=== PATIENT | female | born 1990 | race Two or more races ===

== ENCOUNTER 2022-12-05 09:45 | Observation (INO) | payer MEDICAID ==
[2022-12-05 10:24] LABS: Basophils # (auto) 0 10 ^3/uL (0-0.2); Basophils % (auto) 0.4 % (0.0-2.0); Eosinophils # (auto) 0.1 10 ^3/uL (0-0.8); Eosinophils % (auto) 1.4 % (0.0-7.0); Hematocrit 37.2 % (36.0-46.0); Hemoglobin 12.1 g/dL (12.2-16.2); Lymphocytes # (auto) 1.5 10 ^3/uL (0.4-5.4); Lymphocytes % (auto) 24.8 % (10.0-50.0); Mean Corpuscular Hemoglobin 26.8 pg (28.0-32.0); Mean Corpuscular Hgb Conc. 32.6 g/dL (32.0-36.0); Mean Corpuscular Volume 82.1 fL (80.0-100.0); Monocytes # (auto) 0.4 10 ^3/uL (0-1.3); Monocytes % (auto) 6.9 % (0.0-12.0); Neutrophils % (auto) 66.5 % (37.0-80.0); Nucleated Red Blood Cells % 0.2 %; Red Blood Cells 4.53 10^6/uL (4.0-5.20); Red Cell Distribution Width 16.1 % (11.8-14.3); White Blood Cell 5.9 10^3/uL (4.4-10.8)
[2022-12-05 11:00] LABS: Urine Bacteria FEW /hpf (None Seen); Urine Blood Negative /uL (Negative); Urine Hyaline Cast FEW /lpf (0 - 2); Urine Specific Gravity 1.007 (1.001-1.035); Urine WBC 5 /hpf (0 - 5)
[2022-12-05 11:05] LABS: Albumin 2.8 g/dL (3.4-5.0); Calcium 8.7 mg/dL (8.5-10.1); Potassium 4.1 mmol/L (3.5-5.1)
[2022-12-05 11:10] LABS: BUN/Creatinine Ratio 10.7 (10.0-20.0); Bilirubin, Total 0.7 mg/dL (0.2-1.0); Uric Acid 3.6 mg/dL (2.6-6.0)
[2022-12-05 12:02] LABS: INR 0.89 (0.9-1.15); Partial Thromboplastin Time 25.4 sec (24.6-33.4)
[2022-12-05 12:02] LABS: Protein, Urine 17.9 mg/dL (0.0-11.9)
[2022-12-05] MEDS ORDERED: PREN-96 PO (12:28)
[2022-12-05] MEDS ORDERED: NITR-87 PO (12:28)
== END 2022-12-05 12:42 | disposition home or self-care (01) ==
LOC: LDRP 09:45
PROVIDERS: ADMIT Obstetrics & Gynecology; ATTEND Obstetrics & Gynecology
DX: O14.93 Unspecified pre-eclampsia, third trimester (principal); O26.893 Other specified pregnancy related conditions, third trimester; R42 Dizziness and giddiness; Z3A.38 38 weeks gestation of pregnancy
CPT/HCPCS: 36415; 59025; 76818; 80053; 81001; 81002; 82570; 84156; 84550; 85025; 85379; 85610; 85730; 94760; G0378

== ENCOUNTER 2022-12-08 08:45 | Observation (INO) | payer MEDICAID ==
[~2022-12-08 08:45] MED LIST: NITR-87 PO; PREN-96 PO
[2022-12-16] MEDS ORDERED: IBUP800T27 PO (07:19)
== END 2022-12-08 11:14 | disposition home or self-care (01) ==
LOC: LDRP 08:45 → UNDOADMOB 08:45 → LDRP 08:52 → UNDODISOB 11:14
PROVIDERS: ADMIT Obstetrics & Gynecology; ATTEND Obstetrics & Gynecology
DX: O13.3 Gestational [pregnancy-induced] hypertension without significant proteinuria, third trimester (principal); O26.893 Other specified pregnancy related conditions, third trimester; R42 Dizziness and giddiness; Z3A.39 39 weeks gestation of pregnancy
CPT/HCPCS: 59025; 76818; 81002; 94760; G0378

== ENCOUNTER 2022-12-11 06:50 | Observation (INO) | payer MEDICAID ==
[2022-12-11 08:40] LABS: Basophils # (auto) 0 10 ^3/uL (0-0.2); Basophils % (auto) 0.4 % (0.0-2.0); Eosinophils # (auto) 0.1 10 ^3/uL (0-0.8); Eosinophils % (auto) 1.3 % (0.0-7.0); Hematocrit 35.4 % (36.0-46.0); Hemoglobin 11.9 g/dL (12.2-16.2); Lymphocytes # (auto) 1.3 10 ^3/uL (0.4-5.4); Lymphocytes % (auto) 25.4 % (10.0-50.0); Mean Corpuscular Hemoglobin 27.7 pg (28.0-32.0); Mean Corpuscular Hgb Conc. 33.7 g/dL (32.0-36.0); Monocytes # (auto) 0.4 10 ^3/uL (0-1.3); Monocytes % (auto) 7.5 % (0.0-12.0); Neutrophils # (auto) 3.5 10 ^3/uL (1.6-8.6); Neutrophils % (auto) 65.4 % (37.0-80.0); Nucleated Red Blood Cells % 0.1 %; Red Blood Cells 4.31 10^6/uL (4.0-5.20); Red Cell Distribution Width 16.7 % (11.8-14.3); White Blood Cell 5.3 10^3/uL (4.4-10.8)
[2022-12-11 08:46] LABS: Urine Bacteria NONE SEEN /hpf (None Seen); Urine Blood Negative /uL (Negative); Urine Mucus FEW (None Seen); Urine Specific Gravity 1.015 (1.001-1.035); Urine WBC 5 /hpf (0 - 5)
[2022-12-11 08:55] LABS: INR 0.92 (0.9-1.15); Partial Thromboplastin Time 25.4 sec (24.6-33.4)
[2022-12-11 09:21] LABS: Albumin 2.6 g/dL (3.4-5.0); Calcium 8.2 mg/dL (8.5-10.1); Potassium 3.5 mmol/L (3.5-5.1)
[2022-12-11 09:26] LABS: BUN/Creatinine Ratio 8.2 (10.0-20.0); Bilirubin, Total 0.8 mg/dL (0.2-1.0); Total Protein 5.8 g/dL (6.4-8.2); Uric Acid 4.6 mg/dL (2.6-6.0)
== END 2022-12-11 09:18 | disposition home or self-care (01) ==
LOC: LDRP 06:50
PROVIDERS: ADMIT Obstetrics & Gynecology; ATTEND Obstetrics & Gynecology
DX: O13.3 Gestational [pregnancy-induced] hypertension without significant proteinuria, third trimester (principal); O62.9 Abnormality of forces of labor, unspecified; Z3A.39 39 weeks gestation of pregnancy
CPT/HCPCS: 36415; 59025; 76818; 80053; 81001; 81002; 82570; 84156; 84550; 85025; 85610; 85730; 94760; G0378

== ENCOUNTER 2022-12-15 07:56 | Observation (INO) | payer MEDICAID ==
[2022-12-16] MEDS ORDERED: IBUP-1456 PO (07:19)
[2022-12-16] MEDS ORDERED: HYDR-4902 PO (07:19)
[2022-12-16] MEDS ORDERED: DOCU-94 PO (07:19)
== END 2022-12-15 10:07 | disposition home or self-care (01) ==
LOC: LDRP 07:56
PROVIDERS: ADMIT Obstetrics & Gynecology; ATTEND Obstetrics & Gynecology
DX: O36.63X0 Maternal care for excessive fetal growth, third trimester, not applicable or unspecified (principal); Z3A.40 40 weeks gestation of pregnancy

== ENCOUNTER 2022-12-15 07:56 | Inpatient (IN) | payer MEDICAID ==
[~2022-12-15] VITALS: Ht 144.8 cm; Wt 80.7 kg
[2022-12-15 09:21] LABS: Basophils # (auto) 0 10 ^3/uL (0-0.2); Basophils % (auto) 0.4 % (0.0-2.0); Eosinophils # (auto) 0 10 ^3/uL (0-0.8); Hematocrit 36.8 % (36.0-46.0); Hemoglobin 12.3 g/dL (12.2-16.2); Lymphocytes # (auto) 0.9 10 ^3/uL (0.4-5.4); Lymphocytes % (auto) 24.3 % (10.0-50.0); Mean Corpuscular Hemoglobin 27.7 pg (28.0-32.0); Mean Corpuscular Hgb Conc. 33.4 g/dL (32.0-36.0); Mean Corpuscular Volume 82.8 fL (80.0-100.0); Monocytes # (auto) 0.3 10 ^3/uL (0-1.3); Monocytes % (auto) 7.7 % (0.0-12.0); Neutrophils # (auto) 2.6 10 ^3/uL (1.6-8.6); Neutrophils % (auto) 66.6 % (37.0-80.0); Nucleated Red Blood Cells % 0.2 %; Red Blood Cells 4.44 10^6/uL (4.0-5.20); Red Cell Distribution Width 17.3 % (11.8-14.3); White Blood Cell 3.9 10^3/uL (4.4-10.8)
[2022-12-15 09:44] LABS: Albumin 2.7 g/dL (3.4-5.0); Calcium 8.9 mg/dL (8.5-10.1); Potassium 4.3 mmol/L (3.5-5.1)
[2022-12-15 09:48] LABS: BUN/Creatinine Ratio 6.9 (10.0-20.0); Bilirubin, Total 0.8 mg/dL (0.2-1.0); Total Protein 6.7 g/dL (6.4-8.2)
[2022-12-15 09:55] LABS: INR 0.91 (0.9-1.15); Partial Thromboplastin Time 25.4 sec (24.6-33.4)
[2022-12-16] VITALS (15 sets, daily range): BP systolic 97–124; BP diastolic 64–88
[2022-12-16] MEDS ORDERED: ceFAZolin 2 GM/D5W100ml 100 ML IV ONE (04:15)
[2022-12-16] MEDS ORDERED: LACTATED RINGER'S 1,000 ML IV ONE (04:15)
[2022-12-16] MEDS ORDERED: MORPHINE SULF PF 5 MG/10 ML VIAL ONE (07:16)
[2022-12-16] MEDS ORDERED: fentaNYL CITRATE 100 MCG/2 ML VL ONE (07:17)
[2022-12-16] MEDS ORDERED: MIDAZOLAM HCL 2MG/2ML 2ml VIAL (1mg/ml) ONE (07:17)
[2022-12-16] MEDS ORDERED: TETRACAINE 1% INJ 2 ML VIAL IJ ONE (07:18)
[2022-12-16] MEDS ORDERED: DOCU-94 PO (07:19)
[2022-12-16] MEDS ORDERED: HYDR-4902 PO (07:19)
[2022-12-16] MEDS ORDERED: IBUP-1456 PO (07:19)
[2022-12-16] MEDS ORDERED: ONDANSETRON HCL 4 MG/2 ML VIAL IV PRN ×3 (07:30→08:30)
[2022-12-16] MEDS ORDERED: GUM (CHEWING) 1 GUM CHEW CHEW ONE (07:30)
[2022-12-16] MEDS ORDERED: LACT. RINGERS/OXYTOCIN 20UNITS 1,000 ML IV ONE (07:30)
[2022-12-16] MEDS ORDERED: ceFAZolin 1GM/50ML 50 ML IV SCH (07:30)
[2022-12-16 08:07] LABS: RPR Non Reactive (Non Reactive)
[2022-12-16] MEDS ORDERED: ePHEDrine SULFATE 50 MG/ML AMP IV PRN (08:30)
[2022-12-16] MEDS ORDERED: DexAMETHasone SOD PHOS 10MG/1ML VIAL INJ IV PRN (08:30)
[2022-12-16] MEDS ORDERED: MIDAZOLAM HCL 2MG/2ML 2ml VIAL (1mg/ml) IV PRN (08:30)
[2022-12-16] MEDS ORDERED: HYDROmorphone HCL 2 MG/ML VL/or syr IV PRN (08:30)
[2022-12-16] MEDS ORDERED: MORPHINE SULFATE 4 MG/ML SYR/VIAL IV PRN (08:30)
[2022-12-16] MEDS ORDERED: diphenhdrAMINE HCL 50 MG/1 ML VL IV PRN (08:30)
[2022-12-16] MEDS ORDERED: NALOXONE HCL 0.4 MG/ML VIAL IV PRN (08:30)
[2022-12-16] MEDS ORDERED: LABETALOL HCL 5 MG/ML 4ML SYRINGE IV PRN (08:30)
[2022-12-16] MEDS ORDERED: oxyTOCIN 10 UNIT/ML 10ML VIAL ONE (08:37)
[2022-12-16] MEDS: LACTATED RINGER'S 1,000 ML IV SCH ×2 (09:56→20:18)
[2022-12-16] MEDS ORDERED: ACETAMINOPHEN IV 1000 MG/100ML (10MG/ML) IV PRN (10:00)
[2022-12-16] MEDS: ACETAMINOPHEN IV 1000 MG/100ML (10MG/ML) IV PRN ×2 (12:09→20:18)
[2022-12-16] MEDS: ceFAZolin 1GM/50ML 50 ML IV SCH ×2 (15:38→23:07)
[2022-12-16 19:05] LABS: Urine Bacteria NONE SEEN /hpf (None Seen); Urine Blood Negative /uL (Negative); Urine Mucus FEW (None Seen); Urine Specific Gravity 1.019 (1.001-1.035); Urine WBC 2 /hpf (0 - 5)
[2022-12-16 19:45] LABS: Alcohol, Urine < 3.0 mg/dL (0-10); Amphetamine Screen, Urine NEGATIVE (NEGATIVE); Barbiturate Scree,Urine NEGATIVE (NEGATIVE); Opiate Scree,Urine POSITIVE (NEGATIVE); Phencyclidine Screen, Urine NEGATIVE (NEGATIVE)
[2022-12-16 19:46] LABS: Benzodiazephine Screen, Urine POSITIVE (NEGATIVE); Cannabinoid Screen, Urine NEGATIVE (NEGATIVE); Cocaine Screen, Urine NEGATIVE (NEGATIVE)
[2022-12-16 22:22] LABS: Basophils # (auto) 0 10 ^3/uL (0-0.2); Basophils % (auto) 0.1 % (0.0-2.0); Eosinophils # (auto) 0 10 ^3/uL (0-0.8); Hematocrit 33.3 % (36.0-46.0); Hemoglobin 11.3 g/dL (12.2-16.2); Lymphocytes # (auto) 0.6 10 ^3/uL (0.4-5.4); Lymphocytes % (auto) 7.3 % (10.0-50.0); Mean Corpuscular Hemoglobin 27.7 pg (28.0-32.0); Mean Corpuscular Hgb Conc. 33.8 g/dL (32.0-36.0); Monocytes # (auto) 0.3 10 ^3/uL (0-1.3); Monocytes % (auto) 3.4 % (0.0-12.0); Neutrophils # (auto) 7.4 10 ^3/uL (1.6-8.6); Neutrophils % (auto) 89.2 % (37.0-80.0); Nucleated Red Blood Cells % 0.3 %; Red Blood Cells 4.06 10^6/uL (4.0-5.20); Red Cell Distribution Width 17.3 % (11.8-14.3); White Blood Cell 8.3 10^3/uL (4.4-10.8)
[2022-12-17] VITALS (9 sets, daily range): BP systolic 98–114; BP diastolic 51–72
[2022-12-17] MEDS: ACETAMINOPHEN IV 1000 MG/100ML (10MG/ML) IV PRN (04:19)
[2022-12-17] MEDS: ceFAZolin 1GM/50ML 50 ML IV SCH (06:51)
[2022-12-17] MEDS ORDERED: HYDROcodone-ACET 5/325MG TAB PO PRN (08:00)
[2022-12-17] MEDS ORDERED: BISACODYL 10 MG RECT SUPP PR PRN (08:00)
[2022-12-17 08:14] LABS: Basophils # (auto) 0 10 ^3/uL (0-0.2); Basophils % (auto) 0.1 % (0.0-2.0); Eosinophils # (auto) 0 10 ^3/uL (0-0.8); Eosinophils % (auto) 0.1 % (0.0-7.0); Hematocrit 29.9 % (36.0-46.0); Hemoglobin 10.2 g/dL (12.2-16.2); Lymphocytes # (auto) 0.7 10 ^3/uL (0.4-5.4); Lymphocytes % (auto) 10.3 % (10.0-50.0); Mean Corpuscular Hemoglobin 27.9 pg (28.0-32.0); Mean Corpuscular Hgb Conc. 34.1 g/dL (32.0-36.0); Mean Corpuscular Volume 81.6 fL (80.0-100.0); Monocytes # (auto) 0.4 10 ^3/uL (0-1.3); Monocytes % (auto) 5.5 % (0.0-12.0); Neutrophils # (auto) 5.6 10 ^3/uL (1.6-8.6); Red Blood Cells 3.67 10^6/uL (4.0-5.20); Red Cell Distribution Width 17.3 % (11.8-14.3); White Blood Cell 6.6 10^3/uL (4.4-10.8)
[2022-12-17] MEDS: HYDROcodone-ACET 5/325MG TAB PO PRN ×3 (08:52→20:22)
[2022-12-17] MEDS: DOCUSATE CALCIUM 240 MG CAP PO SCH (11:49)
[2022-12-17] MEDS: IBUPROFEN 800 MG TAB PO PRN (11:50)
[2022-12-17] MEDS: SIMETHICONE 80 MG CHEWABLE TABLET PO SCH ×3 (11:50→22:00)
[2022-12-18] MEDS: HYDROcodone-ACET 5/325MG TAB PO PRN (02:49)
[2022-12-18 02:54] VITALS: BP 104/66
[2022-12-18] MEDS: SIMETHICONE 80 MG CHEWABLE TABLET PO SCH ×3 (05:48→17:26)
[2022-12-18 06:53] VITALS: BP 116/74
[2022-12-18] MEDS: IBUPROFEN 800 MG TAB PO PRN ×2 (07:01→16:09)
[2022-12-18] MEDS: DOCUSATE CALCIUM 240 MG CAP PO SCH (10:01)
[2022-12-18 11:15] VITALS: BP 109/69
[2022-12-18 15:05] VITALS: BP 114/71
[2022-12-18 19:00] VITALS: BP 117/74
== END 2022-12-18 22:23 | disposition home or self-care (01) | DRG 540 ==
LOC: UNDOADMOB 07:56 → LDRP 07:56 → EDSTATUS 08:43 → LDRP 12-16 04:01
PROVIDERS: ADMIT Obstetrics & Gynecology; ATTEND Obstetrics & Gynecology
PROC: 10D00Z1 Extraction of Products of Conception, Low, Open Approach (ICD-10-PCS; principal; 2022-12-16 07:21)
DX: O69.81X0 Labor and delivery complicated by cord around neck, without compression, not applicable or unspecified (principal); R71.0 Precipitous drop in hematocrit; O36.63X0 Maternal care for excessive fetal growth, third trimester, not applicable or unspecified; Z37.0 Single live birth; Z3A.39 39 weeks gestation of pregnancy
CPT/HCPCS: 36415; 59025; 76818; 80053; 80307; 81001; 81002; 85025; 85610; 85730; 86592; 86850; 86900; 86901; 94760; 94762; 96360; 96361; G0378; J0131; J0690; J2250; J2590